=== PATIENT | female | born 1960 | race Caucasian/White ===

== ENCOUNTER 2017-04-04 06:20 | Day surgery (SDC) | payer BC ==
[~2017-04-04 06:20] MED LIST: Acetaminophen TAB* 325 MG PO PRN; Buffered Lidocaine 1% SYR 3ML* 3 ML/SYR SYRINGE INTRADERM ONE
[2017-04-04] MEDS ORDERED: Midazolam* 1 MG/ML 5 ML VIAL (5 MG) ONE (07:24)
[2017-04-04] MEDS ORDERED: Cyclopentolate 1% OPTH.SOL* 2 ML BTL ONE (08:07)
[2017-04-04] MEDS ORDERED: Povidone Iodine 5% OPTH* 30 ML BTL ONE (08:07)
[2017-04-04] MEDS ORDERED: Proparacaine 0.5% OPHTH.SOL* 15 ML BTL ONE (08:07)
[2017-04-04] MEDS ORDERED: Lidocaine 1% MPF* 2 ML VIAL ONE (08:07)
[2017-04-04] MEDS ORDERED: Lidocaine 2% EPI 1:200000 MPF* 20 ML VIAL ONE (08:07)
[2017-04-04] MEDS ORDERED: Neomycin/Polymy/Dex OPTH.SUSP* MAXITROL 0.1% 5 ML ONE (08:07)
[2017-04-04] MEDS ORDERED: acetaZOLAMIDE TAB* 250 MG ONE (08:07)
[2017-04-04] MEDS ORDERED: Phenylephrine 2.5% OPTH.SOL* 2 ML BTL ONE (08:07)
[2017-04-04] MEDS ORDERED: Flurbiprofen 0.03% OPTH.SOL* 2.5 ML BTL ONE (08:07)
[2017-04-04 08:16] VITALS: BP 133/80
--- NOTE | 2017-04-04 10:41 | OP ---
OPERATIVE NOTE: DATE OF OPERATION: 04/04/17 DATE OF : 58 SURGEON: Kiko Jessica M.D. PREOPERATIVE DIAGNOSIS: Cataract, left eye. POSTOPERATIVE DIAGNOSIS: Cataract, left eye. OPERATIVE PROCEDURE: Phacoemulsification, left eye with IOL. PROCEDURE: The patient was brought to the operating room after being given 1/2% Alcaine with epinep hrine drops in the preoperative area. The eye was prepped and draped in the usual sterile fashion. Sterile drape and eyelid speculum were placed. Again, topical 1/2% Alcaine with epinephrine was gi mita. A paracentesis incision was made at the 3 o'clock position with the No.75 blade. Clear cornea incision 2.2 x 2.2-mm was created at the 6 o'clock position starting at the anterior limbus using t he 2.2-mm keratome. The anterior chamber was irrigated with 0.4 mL of 1% non-preservative intracame ral lidocaine and filled with DisCoVisc. A capsulorrhexis was completed using the cystotome and the Utrata forceps. Hydrodissection was performed with balanced salt solution. The lens nucleus was re moved with the Phacoemulsification handpiece without incident. Cortex was removed with the irrigati on-aspiration handpiece. The capsular bag was re-inflated using DisCoVisc and an [id number] implant was inserted with the shooter. The irrigation-aspiration handpiece was used to remove all residual DisCoVisc. The eye was refilled with balanced salt solution and the wound checked and found to be w atertight. Topical Maxitrol drops were given. [id number]/[facility] #: [id number]
== END 2017-04-04 08:12 | disposition home or self-care (01) ==
LOC: OREAST 06:20
PROVIDERS: ATTEND Specialist
DX: H25.812 Combined forms of age-related cataract, left eye (principal); H43.813 Vitreous degeneration, bilateral; F34.1 Dysthymic disorder
CPT/HCPCS: A9270-GY; J2250; V2632

== ENCOUNTER 2017-12-22 14:22 | Emergency (ER) | payer BC ==
--- OUTSIDE RECORDS SUMMARY | 2017-12-22 14:43 | XMS REPORT ---
:1960 External Reference #:[id number] Author Organization [facility] Address [address] [place] [address] Phone [phone] Care Team Providers Name Role Phone Kiko Galicia M.D. Primary Care Physician Unavailable Payers Type Date Identification Numbers Payment Provider Subscriber Commercial Policy Number: [id number] [employer] Yomaira Warren PayID: [id number] [place] [address] Problems Date Description Provider Status Onset: Anxiety Active Onset: Hearing loss Active Onset: Hearing aid worn Active Onset: 12/20/2017 Other secondary cataract, bilateral Elie Myles M.D. Active Onset: 12/20/2017 Squamous blepharitis Elie Myles M.D. Active Onset: 12/20/2017 Punctate keratitis Elie Myles M.D. Active Onset: 04/05/2017 Presence of intraocular lens Kiko Jessica M.D. Active Onset: 02/16/2017 Vitreous degeneration Kiko Jessica M.D. Active Onset: 02/16/2017 Combined form of senile cataract Kiko Jessica M.D. Active Family History Date Family Member(s) Problem(s) Comments General retinal vein occlusion both eyes Father retinal vein occlusion both eyes Mother Macular Degeneration Social History Type Date Description Comments Marital Status Legal Status: Occupation [employer] Work Status Full-Time Employment ETOH Use Occasionally consumes wine Smoking Patient is a former smoker Recreational Drug Use Denies Drug Use Daily Caffeine Consumes on average 2 cups of hot tea per day Allergies, Adverse Reactions, Alerts Date Description Reaction Status Severity Comments 02/16/2017 Macrodantin active Medications Medication Date Status Form Strength Qnty SIG Indications Ordering Provider Neomycin/Polymyx Active Suspension 3.5-37711- 10ml use one H01.022 Elie in/Dexamethasone 018 0.1 drop Shameka, three M.D. times a day to Right eye for 14days then stop Systane Ultra Active Solution 0.4-0.3% 10ml 1 drop Kiko Lindsay 017 Left Arleo, eye M.D. every 2 hours Sertraline HCL 0 Active Tablets 25mg every Igor, 000 other day N.P. Ciprofloxacin Hx Solution 0.3% 5ml 1 drop Kiko JGt HCL 017 - Left Arleo, eye 3 M.D. 017 times a day Ketorolac Hx Solution 0.5% 10ml 1 drop Kiko Lindsay Tromethamine 017 - Right Arleo, eye 2 M.D. 017 times a day - 1 drop Left eye 3 times a day Prednisolone Hx Suspension 1% 10ml 1 drop Kiko Neftali Acetate 017 - Right Arleo, eye 2 M.D. 017 times a day - 1 drop Left eye 3 times a day Results Description No Information Procedures Date CPT Code Description Status 04/04/2017 08796 Extracapsular Cataract Extraction W/Intraocular Lens Completed 03/28/2017 61064 Extracapsular Cataract Extraction W/Intraocular Lens Completed 03/20/2017 41671 Ophthalmic Biometry Completed 03/20/2017 74757 Scanning Computerized Opthalmic Diagnostic Posterior Completed Seg Retina 02/16/2017 22672 New Patient Comprehensive Exam Completed Encounters Type Date Location Provider CPT E/M Dx Office Visit 03/20/2017 Kiko Jessica MD, Kiko Jessica, [address] H25.811 12:15p chantal Camargo H25.812 H43.813 Plan of Care 12/20/2017 - Elie Myles M.D.H43.811 Vitreous degeneration, right eyeComments:Smoking can increase the risk of developing or worsening any eye related disease, as well as affect your overall health. If you are a smoker, we strongly recommend that you quit.If you are not a smoker, we strongly recommend that you do not start. You have a Posterior Vitreous Detachment in your right eye. If you have any changes in your floaters or flashing lights, please contact this office.H16.141 Punctate keratitis, right eyeH01.022 Squamous blepharitis right lower eyelidNew Medication:Neomycin/Polymyxin/ Dexamethasone 3.5-80021-4.1Comments:Please follow Dr. Myles's instructions. USE A WARM COMPRESSES FOR 3-5 MINUTES TWICE A DAY MORNING AND BEFORE BED TIME. USE THE TEARS 3-4 TIMES A DAY USE THE DROP IN THE RIGHT EYE THREE TIMES A DAY FOR 2 WEEKS THEN STOPH01.021 Squamous blepharitis right upper amdvbkS85.025 Squamous blepharitis left lower zxuxmkA26.024 Squamous blepharitis left upper cwpbvbE16.493 Other secondary cataract, bilateralComments:There is clouding in the sac that holds your artificial lens. When your vision bothers you, we will do a laser treatment here in the office to improve your vision.
[2017-12-22 14:48] VITALS: BP 147/82
--- NOTE | 2017-12-22 15:04 | UC ---
Knee Pain HPI - HPI Summary HPI Summary: Pt presents with right knee pain for 1 week. 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 About 1 week ago she noticed her right knee was bothering her and noticed some swelling. She tried taking ibuprofen and using icyhot with mild relief. Her pain seemed to get worse as the week went on. Denies specific injury, but says she does have arthritis in her other knee. No numbness or tingling. She is ambulatory without assistance, but this causes pain. - History of Current Complaint Chief Complaint: UCLowerExtremity Stated Complaint: knee pain Time Seen by Provider: 12/22/17 14:52 Hx Obtained From: Patient Onset/Duration: Gradual Onset Severity Initially: Mild Severity Currently: Moderate Pain Intensity: 4 Pain Scale Used: 0-10 Numeric Character: Sharp, Aching Aggravating Factor(s): Movement, Weight Bearing Alleviating Factor(s): Rest Able to Bear Weight: Yes - Allergies/Home Medications Allergies/Adverse Reactions: Allergies Allergy/AdvReac Type Severity Reaction Status Date / Time MS Nitrofurantoin Allergy GI Upset Verified 12/22/17 14:48 [From Macrodantin] ENVIRONMENTAL Allergy Congestion Uncoded 12/22/17 14:48 WHEAT Allergy GI Upset Uncoded 12/22/17 14:48 PMH/Surg Hx/FS Hx/Imm Hx Previously Healthy: Yes Psychological History: Anxiety, Depression - Surgical History Surgical History: None - Family History Known Family History: Positive: Unknown - Social History Occupation: Employed Full-time Lives: With Family Alcohol Use: Occasionally Alcohol Amount: 1-2 drinks a month Substance Use Type: None Smoking Status (MU): Former Smoker Amount Used/How Often: smoked for about 4 yrs, 1 pack a week When Did the Patient Quit Smoking/Using Tobacco: quit smoking 1980 Review of Systems Constitutional: Negative Skin: Negative Respiratory: Negative Cardiovascular: Negative Gastrointestinal: Negative Neurovascular: Negative Musculoskeletal: Edema - Right knee, Other: - Right knee pain Neurological: Negative Psychological: Negative All Other Systems Reviewed And Are Negative: Yes Physical Exam Triage Information Reviewed: Yes Appearance: Well-Appearing, No Pain Distress, Well-Nourished Vital Signs: Initial Vital Signs Temp 98.2 F 12/22/17 14:44 Pulse 88 12/22/17 14:44 Resp 18 12/22/17 14:44 BP 147/82 12/22/17 14:44 Pulse Ox 98 12/22/17 14:44 Vital Signs Reviewed: Yes Respiratory: Positive: Lungs clear, Normal breath sounds, No respiratory distress, No accessory muscle use Cardiovascular: Positive: RRR, No Murmur, Pulses Normal - Popliteal, TP, DP, Brisk Capillary Refill - Right LE Musculoskeletal: Positive: Strength Intact - B/L LEs, ROM Limited @ - Right knee flexion >90deg due to pain, Edema @ - Right medial knee - mild, Other: - TTP over right medial knee joint space. No obvious bony deformities. No patella apprehension. Negative Dio, A/P drawer, Eva, and varus/valgus stress. Neurological: Positive: Alert, Other: - Sensations intact b/l LEs Psychological: Positive: Age Appropriate Behavior Skin: Negative: rashes, breakdown Knee Pain Course/Dx - Course Course Of Treatment: Knee XR: IMPRESSION: Normal knee radiograph. Suspect underlying arthritis or knee sprain. KAILEY wrap, ibuprofen, and refer to orthopedics for potential steroid injection. - Differential Dx/Diagnosis Provider Diagnoses: Right knee pain Discharge - Discharge Plan Condition: Stable Disposition: HOME Patient Education Materials: Knee Pain (ED) Referrals: Kiko Galicia MD [Primary Care Provider] - Fernando Steward MD [Medical Doctor] - As Soon As Possible Additional Instructions: If you develop a fever, shortness of breath, chest pain, new or worsening symptoms - please call your PCP or go to the ED. Your blood pressure was mildly elevated at todays visit. Please see your primary provider within 4 weeks for recheck and re-evaluation. 1) Please call Orthopedics at the number below to schedule a follow up appointment. 2) May take OTC tylenol or ibuprofen every 6-8 hours as needed for pain
--- NOTE | 2017-12-22 15:25 | RAD ---
INDICATION: Chronic right knee pain COMPARISON: None TECHNIQUE: 4 view radiograph of the right knee. FINDINGS: The visualized bones are well-corticated and properly aligned. The joint spaces are properly maintained. There is no radiographic evidence of joint effusion. There is no acute fracture, dislocation or other focal bony abnormality. IMPRESSION: Normal knee radiograph as described above. If the patient's symptoms persist, follow-up imaging is recommended.
== END 2017-12-22 15:54 | disposition home or self-care (01) ==
LOC: UCEAST 14:22
DX: M25.561 Pain in right knee (principal); Z88.1 Allergy status to other antibiotic agents; F41.9 Anxiety disorder, unspecified; F32.9 Major depressive disorder, single episode, unspecified; Z87.891 Personal history of nicotine dependence
CPT/HCPCS: 99212; G0463